=== PATIENT | male | born 2005 | race Caucasian/White ===

== ENCOUNTER 2024-09-20 20:04 | Emergency (ER) | payer BC ==
[2024-09-20] MEDS ORDERED: DERMABOND SKIN ADHESIVE TOP ONE (20:34)
[2024-09-20] MEDS ORDERED: LIDOCAINE 1% MPF 5 ML VIAL ONE (20:34)
--- NOTE | 2024-09-20 20:56 | EDPHYS ---
Physician Documentation [facility] Name: Hansel Espinal Age: 19 yrs Sex: Male : 2005 Arrival Date: 09/20/2024 Time: 20:04 Bed 5 Private MD: ED Physician Juan Layne HPI: 09/20 21:39 This 19 yrs old Male presents to ER via Ambulatory with complaints of Finger Injury. rt 21:39 Patient presents to the ED with a laceration to the tip of the left third finger. rt Patient was regrouping golf clubs when the knife slipped, cutting his finger. Denies other injury, other acute complaints, states that his last tetanus immunization was a few days ago. Symptoms are mild in severity, no other aggravating or alleviating factors.. Historical: - Allergies: 20:27 peanut; me1 - Home Meds: 20:27 None [Active]; me1 - PMHx: 20:27 None; me1 - Immunization history:: Adult Immunizations up to date, Last tetanus immunization: < 5 years ago. - Infectious Disease History:: Denies. - Social history:: Smoking status: Patient denies any tobacco usage or history of. - Family history:: not pertinent. ROS: 21:39 Constitutional: Negative for fever, chills, and weight loss, Neuro: Negative for rt headache, weakness, numbness, tingling, and seizure, Psych: Negative for depression, anxiety, suicide ideation, homicidal ideation, and hallucinations, 21:39 MS/extremity: Positive for laceration, Negative for decreased range of motion, Exam: 21:39 Constitutional: This is a well developed, well nourished patient who is awake, alert, rt and in no acute distress. Head/Face: Normocephalic, atraumatic. Neuro: Awake and alert, GCS 15, oriented to person, place, time, and situation. Cranial nerves II-XII grossly intact. Motor strength 5/5 in all extremities. Sensory grossly intact. Cerebellar exam normal. Normal gait. 21:39 Musculoskeletal/extremity: 2 cm laceration to the tip of the left third finger extending just laterally to the nail, nail, nailbed are not involved. Full range of motion, mild bleeding noted. Vital Signs: 20:34 BP 154 / 101; Pulse 99; Resp 19 S; Pulse Ox 100% on R/A; ha1 20:35 Weight 90.72 kg; Height 5 ft. 11 in. ; al5 21:10 BP 126 / 61; Pulse 90; Resp 18 S; Pulse Ox 100% on R/A; ha1 20:35 Body Mass Index 27.89 (90.72 kg, 180.34 cm) al5 Laceration: 21:39 Wound Repair of 2cm ( 0.8in ) subcutaneous laceration to left middle finger. Linear rt shaped.. Distal neuro/vascular/tendon intact. Anesthesia: Digital block administered with 2 mls of 1% lidocaine. Wound prep: Copious irrigation. Skin closed with dermabond Adhesive skin closure using Dermabond. Skin closed with 2 4-0 Vicryl using simple sutures and sterile technique. Patient tolerated well. MDM: 20:24 Medical Screening Exam initiated rt 21:39 Differential diagnosis: Laceration. Data reviewed: vital signs, nurses notes. rt Counseling: I had a detailed discussion with the patient and/or guardian regarding the historical points, exam findings, and any diagnostic results supporting the discharge/admit diagnosis, the need for outpatient follow up, to return to the emergency department if symptoms worsen or persist or if there are any questions or concerns that arise at home. Response to treatment: the patient's symptoms have markedly improved after treatment. 09/20 21:14 Order name: Dressing - Wound; Complete Time: 21:14 ha1 09/20 21:14 Order name: Gloves, Sterile; Complete Time: 21:14 ha1 09/20 21:14 Order name: Setup Suture Tray; Complete Time: 21:14 ha1 Administered Medications: 20:50 Drug: Lidocaine Infiltration (1 %) 1 vials 5 ml Infiltration once; to bedside {Note: ha1 ADMINISTERED BY DR. LAYNE .} Volume: 5 ml; Route: Infiltration; 21:15 Follow up: Response: No adverse reaction ha1 Disposition Summary: 09/20/24 20:55 Discharge Ordered Notes: Location: Home rt Problem: new rt Symptoms: have improved rt Condition: Stable rt Diagnosis - Laceration to left third finger rt Followup: rt - With: Private Physician - When: 5 - 6 days - Reason: Discharge Instructions: - Discharge Summary Sheet rt - Laceration Care, Adult rt Forms: - Medication Reconciliation Form rt - Antibiotic Education rt - Prescription Opioid Use rt - Patient Portal Instructions rt - Leadership Thank You Letter rt Signatures: Lynnette Rausch RN RN ha1 Juan Layne MD MD rt Gracie Mcduffie RN RN me1
--- NOTE | 2024-09-20 20:56 | ER ---
Nurse's Notes [facility] Name: Hansel Espinal Age: 19 yrs Sex: Male : 2005 Arrival Date: 09/20/2024 Time: 20:04 Bed 5 Private MD: Diagnosis: Laceration to left third finger Presentation: 09/20 20:25 Chief complaint: Patient states: laceration to left middle finger. 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 Coronavirus screen: Vaccine status: Patient reports receiving the 2nd dose of the covid vaccine. Ebola Screen: No symptoms or risks identified at this time. Risk Assessment: Do you want to hurt yourself or someone else? Patient reports no desire to harm self or others. Onset of symptoms was September 20, 2024 at 20:00. 20:25 Method Of Arrival: Ambulatory ak1 20:25 Acuity: ANA 4 me1 20:35 Initial Sepsis Screen: Does the patient meet any 2 criteria? No. Patient's initial ha1 sepsis screen is negative. Does the patient have a suspected source of infection? No. Patient's initial sepsis screen is negative. Historical: - Allergies: 20:27 peanut; me1 - Home Meds: 20:27 None [Active]; me1 - PMHx: 20:27 None; me1 - Immunization history:: Adult Immunizations up to date, Last tetanus immunization: < 5 years ago. - Infectious Disease History:: Denies. - Social history:: Smoking status: Patient denies any tobacco usage or history of. - Family history:: not pertinent. Screenin:33 [facility] ED Fall Risk Assessment (Adult) History of falling in the last 3 months, ha1 including since admission No falls in past 3 months (0 pts) Confusion or Disorientation No (0 pts) Intoxicated or Sedated No (0 pts) Impaired Gait No (0 pts) Mobility Assist Device Used No (0 pt) Altered Elimination No (0 pt) Score/Fall Risk Level 0 - 2 = Low Risk Oriented to surroundings, Maintained a safe environment, Educated pt \T\ family on fall prevention, incl call for assistance when getting out of bed, Hourly rounding (assess needs \T\ fall precautionary measures) done. Abuse screen: Denies threats or abuse. Denies injuries from another. Nutritional screening: No deficits noted. Tuberculosis screening: No symptoms or risk factors identified. Assessment: 20:32 General: Appears uncomfortable, Behavior is cooperative. Pain: Complains of pain in ha1 dorsal aspect of middle phalanx of left middle finger Pain does not radiate. Pain currently is 7 out of 10 on a pain scale. Quality of pain is described as aching. Neuro: Level of Consciousness is awake, alert, obeys commands, Oriented to person, place, time, situation. Cardiovascular: Capillary refill < 3 seconds Patient's skin is warm and dry. Respiratory: Airway is patent Respiratory effort is even, unlabored, Respiratory pattern is regular, symmetrical. Musculoskeletal: Circulation, motion, and sensation intact. Injury Description: Laceration sustained to dorsal aspect of middle phalanx of left middle finger is clean, 2.6 to 7.5 cm long. 21:10 Reassessment: Patient and/or family updated on plan of care and expected duration. Pain ha1 level reassessed. Patient is alert, oriented x 3, equal unlabored respirations, skin warm/dry/pink. Patient states feeling better. Patient states symptoms have improved. Vital Signs: 20:34 BP 154 / 101; Pulse 99; Resp 19 S; Pulse Ox 100% on R/A; ha1 20:35 Weight 90.72 kg; Height 5 ft. 11 in. ; al5 21:10 BP 126 / 61; Pulse 90; Resp 18 S; Pulse Ox 100% on R/A; ha1 20:35 Body Mass Index 27.89 (90.72 kg, 180.34 cm) al5 ED Course: 20:05 Patient arrived in ED. am2 20:05 Juan Layne MD is Attending Physician. rt 20:24 Patient has correct armband on for positive identification. Bed in low position. Call ha1 light in reach. Side rails up X 1. Adult w/ patient. 20:24 Provided Education on: PLAN OF CARE . ha1 20:27 Triage completed. me1 20:27 Arm band placed on Patient placed in an exam room. me1 20:35 Keeley Alves, RAHEL is Primary Nurse. al5 20:36 Patient did not have IV access during this emergency room visit. al5 21:10 No provider procedures requiring assistance completed. ha1 Administered Medications: 20:50 Drug: Lidocaine Infiltration (1 %) 1 vials 5 ml Infiltration once; to bedside {Note: ha1 ADMINISTERED BY DR. LAYNE .} Volume: 5 ml; Route: Infiltration; 21:15 Follow up: Response: No adverse reaction ha1 Medication: 20:35 VIS not applicable for this client. ha1 Outcome: 20:55 Discharge ordered by . rt 21:10 Discharged to home ambulatory, with family, ha1 21:10 Condition: stable 21:10 Discharge instructions given to patient, family, Instructed on discharge instructions, follow up and referral plans. wound care, Demonstrated understanding of instructions, follow-up care, wound care, 21:15 Patient left the ED. ha1 Signatures: Keeley Tracy am2 Lynnette Rausch RN RN ha1 Juan Layne MD MD rt Gracie Mcduffie RN RN me1 Keeley Alves RN RN al5
[2024-09-20 21:19] VITALS: O2SAT 100
[2024-09-20 21:20] VITALS: BP 126/61
== END 2024-09-20 21:15 | disposition home or self-care (01) ==
LOC: ER 20:04
DX: S61.213A Laceration without foreign body of left middle finger without damage to nail, initial encounter (principal)
CPT/HCPCS: 12001; 99283; J2003